=== PATIENT | female | born 1990 | race American Indian/Alaskan Native ===

== ENCOUNTER 2024-04-21 06:53 | Day surgery (SDC) | payer BC, OTHER ==
[~2024-04-21 06:53] MED LIST: Sodium Chloride 0.9% 10 ML Syringe FLUSH PRN; Sodium Chloride 0.9% 10 ML Syringe FLUSH SCH
[2024-04-21] MEDS ORDERED: fentaNYL 100 MCG/2 ML SDV IV ONE (06:54)
[2024-04-21] MEDS ORDERED: Midazolam 1 MG/ML 2 ML SDV IV ONE (06:54)
[2024-04-21] MEDS: Dextrose 5%-0.45% NaCl 1,000 ML IV SCH (07:39)
[2024-04-21] MEDS ORDERED: Midazolam 1 MG/ML 2 ML SDV ONE (08:26)
[2024-04-21] MEDS ORDERED: fentaNYL 100 MCG/2 ML SDV ONE (08:26)
[2024-04-21] MEDS: fentaNYL 100 MCG/2 ML SDV IV ONE ×2 (08:36→08:37)
[2024-04-21] MEDS: Midazolam 1 MG/ML 2 ML SDV IV ONE ×2 (08:37→08:38)
== END 2024-04-21 11:00 | disposition home or self-care (01) ==
LOC: DL.ENDO 06:53
PROVIDERS: ATTEND Internal Medicine Gastroenterology
DX: K31.89 Other diseases of stomach and duodenum (principal); E11.43 Type 2 diabetes mellitus with diabetic autonomic (poly)neuropathy; K31.84 Gastroparesis; I10 Essential (primary) hypertension; E78.5 Hyperlipidemia, unspecified
CPT/HCPCS: 81025; 87077; J2250; J3010; J7799

== ENCOUNTER 2025-08-12 08:39 | Emergency (ER) | payer BC, OTHER ==
[2025-08-12] MEDS ORDERED: Sodium Chloride 0.9% 10 ML Syringe FLUSH PRN (09:00)
[2025-08-12 09:15] LABS: BASOPHILS PERCENT AUTO 0.2 % (0.0-1.0); EOSINOPHILS PERCENT AUTO 1.5 % (1.0-3.0); LYMPHOCYTES PERCENT AUTO 22.7 % (20.5-50.1); MONOCYTES PERCENT AUTO 7.0 % (2-8); NEUTROPHILS PERCENT AUTO 68.6 % (42.2-75.2); PLATELET COUNT,PLT 409 10^3/uL (150-450); RED BLOOD CELL COUNT 4.93 10^6/uL (4.2-5.4); WHITE BLOOD CELL COUNT,WBC 11.2 10^3/uL (5.0-10.0)
[2025-08-12 09:36] LABS: A/G RATIO 1.0; ALANINE AMINOTRANSFERASE,ALT 19.0 U/L (14-59); ASPARTATE AMNIOTRANSFERASE,AST 12.0 U/L (15-37); BILIRUBIN TOTAL 0.4 mg/dL (0.2-1.0); BLOOD UREA NITROGEN,BUN 17.0 mg/dL (7-18); CARBON DIOXIDE,CO2 24.0 mmol/L (21-32); CHLORIDE,CL 102.0 mmol/L (98-107); CREATININE 0.94 mg/dL (0.55-1.02); EST CRCL DRUG DOSING (CG) 71.45 mL/min; GLUCOSE RANDOM 206.0 mg/dL (70-99); POTASSIUM,K 3.7 mmol/L (3.5-5.1); PROTEIN TOTAL,TP 7.5 g/dL (6.4-8.2); SODIUM,NA 138.0 mmol/L (136-145)
[2025-08-12 09:37] LABS: ESTIMATED GFR 81.0 mL/min (>=60)
[2025-08-12] MEDS: diphenhydrAMINE 50 MG/ML SDV IVPUSH ONE (09:59)
== END 2025-08-12 10:45 | disposition home or self-care (01) ==
LOC: DL.ED 08:39
DX: K04.7 Periapical abscess without sinus (principal); I10 Essential (primary) hypertension; E11.9 Type 2 diabetes mellitus without complications; Z88.0 Allergy status to penicillin; Z91.041 Radiographic dye allergy status; Z88.5 Allergy status to narcotic agent; Z79.899 Other long term (current) drug therapy; Z79.4 Long term (current) use of insulin; Z79.84 Long term (current) use of oral hypoglycemic drugs
CPT/HCPCS: 36415; 70486; 80053; 85025; 86140; 96361; 96374; 99284; J1200; J7040; 99283